=== PATIENT | female | born 1955 | race Caucasian/White ===

== ENCOUNTER 2016-08-27 09:16 | Emergency (ER) | payer SELFPAY ==
[~2016-08-27] VITALS: Ht 152.4 cm; Wt 81.3 kg
[2016-08-27 13:11] VITALS: BP 118/68
== END 2016-08-27 12:50 | disposition home or self-care (01) ==
LOC: ED 09:16
DX: S42.201A Unspecified fracture of upper end of right humerus, initial encounter for closed fracture (principal); W17.81XA Fall down embankment (hill), initial encounter; Y93.89 Activity, other specified; Y92.89 Other specified places as the place of occurrence of the external cause; Y99.8 Other external cause status
CPT/HCPCS: J1885